=== PATIENT | male | born 1980 | race Caucasian/White ===

== ENCOUNTER 2024-05-29 10:33 | Emergency (ER) | payer BC, SELFPAY ==
[2024-05-29 10:41] VITALS: BP 117/86; PULSE 133; RESP 16; TEMP 38.7; O2SAT 97
--- NOTE | 2024-05-29 10:45 | ED_ITS ---
HPI - URI/Sore Throat General Chief Complaint: Upper Respiratory Infection Stated Complaint: Cough/Fever/Body Aches Time Seen by Provider: 05/29/24 11:10 Source: patient and RN notes reviewed Mode of arrival: ambulatory Limitations: no limitations History of Present Illness HPI Narrative: 44-year-old male presents with concern for cough, fever that started last night. Reports body aches in general malaise. He reports he took ibuprofen. MD elicited complaint: fever and cough Related Data Home Medications ?Medication ?Instructions ?Recorded ?Confirmed ?Last Taken ?Type allopurinol 300 mg tablet mg 05/29/24 Unknown History citalopram 20 mg tablet mg 05/29/24 Unknown History lisdexamfetamine 50 mg capsule mg 05/29/24 Unknown History Allergies Allergy/AdvReac Type Severity Reaction Status Date / Time No Known Allergies Allergy Verified 05/29/24 10:47 Review of Systems Review of Systems: CONSTITUTIONAL: Reports malaise, chills, sweats, fever. EYES: Denies visual changes, redness, or discharge. ENT: Denies rhinorrhea, congestion, sinus pain, otalgia and sore throat. CARDIOVASCULAR: Denies chest pain, palpitations, or edema. RESPIRATORY: Reports cough. Denies dyspnea. GASTROINTESTINAL: Denies abdominal pain, nausea, vomiting, diarrhea SKIN: Denies rash or itching. MUSCULOSKELETAL: Reports myalgia. NEUROLOGIC: Denies headache. All systems reviewed & are unremarkable except as noted in HPI and below PMFSH Comments At time of signature, agree with nursing past medical, surgical, social and fami ly history. There is no relevant family history pertinent to the presenting complaint Exam Narrative: GENERAL: Well-appearing, well-nourished, and in no acute distress. HEAD: Normocephalic EYES: PERRLA, conjunctivae clear ENT: Nares clear. Mucous membranes moist. TM pearly rodriguez with dull light reflex bilaterally; no tragal tenderness. Oropharynx not erythematous without lesions. Tonsils not enlarged and without exudate, no drooling, no hoarseness, no trismus, uvula midline. NECK: Supple. No lymphadenopathy CHEST: Clear to auscultation, breath sounds equal. No wheezing, rhonchi, rales, or stridor. No respiratory distress, speaks in full sentences. Persistent cough noted HEART: Regular rate and rhythm. No murmur heard. SKIN: Warm, dry, no rash. NEURO: Alert and oriented x3. PSYCH: Normal mood and affect Course Course Emergency Course: Patient is aware of diagnosis, understands and agrees to treatment plan. Anticipatory guidance given. Patient agrees to follow-up as directed and is aw are of reasons to seek care at the emergency department. Portions of this record may have been created with voice recognition software Level of Care: Express Care Visit Vital Signs Vital signs: Reviewed. MDM - URI/Sore Throat MDM Narrative Medical decision making narrative: Differential diagnosis considered: Fernandez virus, strep pharyngitis, allergic rhinitis, upper respiratory tract infection, sinusitis, rhinosinusitis, nasopharyngitis. viral pharyngitis, otitis media, otitis externa, pneumonia, bronchitis, viral cough syndrome, viral syndrome, and influenza. Exam findings show no acute concerns or changes; patient is non-toxic appearing and is in no distress. Patient is appropriate for outpatient treatment and follow-up. Lab Data Attestation: I reviewed the patient's lab results. Critical Care Time Critical Care Time Critical Care Time: No Discharge Plan Discharge Clinical Impression: Upper respiratory infection Patient Disposition: Home, Self-Care Condition: Stable Instructions: Upper Respiratory Infection (ED) Additional Instructions: -Take strict precautions to prevent the spread of your virus. Be diligent about covering your cough (even when you are alone) and washing your hands frequently. -You may contagious until you have been symptom and/or fever free for 24 hours without fever reducing medicine -Alternate Ibuprofen and Tylenol for pain and fever relief (per package directions) -Some Cough medicines may make you drowsy, do not take it if you have to make important decisions, drive, or work. -Drink plenty of fluid - drink fluid with electrolytes such as Gatorade or other oral re-hydration solution. Avoid caffeine, which can make dehydration worse. -Get plenty of rest to help your body heal. -Use a cool mist humidifier for chest and nasal congestion. -Eat RAW honey or use cough drops to ease throat discomfort -Do not smoke or expose children to secondhand smoke -Wash your hands frequently. -Please follow-up with your primary care doctor in the next 1-2 days if your symptoms do not improve. -If you have any worsening of symptoms or any other concerns please go to the ED immediately. -Please take medications as prescribed and continue taking your home medications as usual. Patient Language: Haitian Prescriptions: New promethazine-DM 6.25-15 mg/5 mL syrup 5 ml PO Q4-6H PRN (Reason: cough) Qty: 120 0RF No Action citalopram 20 mg tablet allopurinol 300 mg tablet lisdexamfetamine 50 mg capsule Follow-up/Referrals: PHYSICIAN NOT ON STAFF,NONSTAFF [Primary Care Provider] - Stand Alone Forms: Work/School Release IP Time of Disposition: 11:20
[2024-05-29 11:16] LABS: EDCOVIDSCREEN Negative (Negative); EDINFLUASCREEN Negative (Negative); EDINFLUBSCREEN Negative (Negative)
--- OUTSIDE RECORDS SUMMARY | 2024-05-29 11:50 | XMS_ITS | Clinical Summary ---
Author Organization [address] Address [address] [place] [address] Care Team Providers Care Dump Attendant Name Role Phone Octavio Santiago MD Primary Care Provi calderon Allergies No known active allergies Medications tadalafiL (CIALIS) 5 mg tablet Take 1 tablet (5 mg total) by mouth daily as needed for erectile dysfunction 90 tablet 3 02/09/20 22 Active allopurinoL (ZYLOPRIM) 300 mg tabletIndicat ions:Hyperuri cemia Take 1 tablet (300 mg total) by mouth daily 90 tablet 3 01/23/20 24 Active citalopram (CeleXA) 20 mg tabletIndicat ions:Moderate episode of recurrent major depressive disorder (HCC) Take 1 tablet (20 mg total) by mouth daily 90 tablet 3 01/23/20 24 Active albuterol HFA (PROVENTIL HFA,VENTOLIN HFA,PROAIR HFA) 90 mcg/actuation inhaler Inhale 2 puffs every 6 (six) hours as needed for wheezing or shortness of breath 1 each 04/20/19 25 Active lisdexamfetam ine (Vyvanse) 50 mg capsule Take 1 capsule (50 mg total) by mouth every morning 30 capsule 05/16/19 25 Active lisdexamfetam ine (Vyvanse) 50 mg capsule Take 1 capsule (50 mg total) by mouth every morning 30 capsule 04/16/20 24 025 Discontinued(Re order) lisdexamfetam ine (Vyvanse) 50 mg capsule Take 1 capsule (50 mg total) by mouth every morning 30 capsule 05/16/19 25 025 Discontinued Active Problems Problem Noted Date Diagnosed Date H/O cold sores 08/18/2020 Assessment & Plan (08/18/2020 4:16 PM CDT): Order valtrex Hyperuricemia 05/22/2020 Assessment & Plan (02/18/2021 8:01 AM CDT): Chronic with no recent exacerbations Assessment & Plan (11/18/2020 2:07 PM CDT): Chronic Continue allopurinol No recent exacerbations Assessment & Plan (08/18/2020 4:11 PM CDT): Chronic condition stable and well controlled with no exacerbations. Assessment & Plan (05/22/2020 5:19 PM DIRECTOR HEDIS): Chronic condition well controlled no recent gout flare-ups continue allopurinol. Other male erectile dysfunction 02/08/2019 Assessment & Plan (02/08/2019 4:11 PM CDT): New start Viagra Attention deficit hyperactiv ity disorder (ADHD), combined type 02/08/2019 Assessment & Plan (02/18/2021 8:00 AM CDT): Chronic condition Stable Continue vyvanse Assessment & Plan (11/18/2020 2:08 PM CDT): Chronic condition Stable and well controlled Assessment & Plan (08/18/2020 4:10 PM CDT): Chronic condition stable and well controlled on vyvanse 60mg Refill vyvanse Assessment & Plan (05/22/2020 5:18 PM DIRECTOR HEDIS): Chronic uncontrolled Increased Vyvanse 60 mg Assessment & Plan (02/13/2020 5:18 PM CDT): Well controlled on current regimen, no rx changes needed. Continue lifestyle modifications Assessment & Plan (11/07/2019 5:06 PM CDT): Well controlled on current regimen, no rx changes needed. Continue lifestyle modifications Refill medication of vyvanse 50mg Assessment & Plan (05/09/2019 3:56 PM DIRECTOR HEDIS): Increase vyvanse 50mg qd Assessment & Plan (02/08/2019 4:25 PM CDT): Start Vyvanse 40 mg Encounters Date Type Department Care Team Description 04/27/2024 Telephone [facility] [address] [facility] [address] [place] [address] Octavio Santiago MD Med Refill 04/20/2024 8:10 AM DIRECTOR HEDIS E-Visit [facility] [address] [place] [phone] Danni Scott NP Your Medications 04/20/2024 Patient Self-Triage [facility] [address] [place] [address] Mychart, Generic Provider from Last 3 Months Immunizations Name Administration Dates Next Due Influenza, Unspecified 02/08/2023(Deferr ed: Patient Refused),06/16/2022(Deferred: Patient Refused),06/16/2022(Deferred: Patient Refused),02/08/2022(Deferred: Patient Refused),02/18/2021(Deferred: Patient Refused) Tdap 10/09/2016 Surgical History Surgery Date Site/Laterality Comments HERNIA REPAIR NASAL SINUS SURGERY Medical History Medical History Date Comments Gout Kidney stone 2008 ADHD (attention deficit hyperactivity disorder) Irritability and anger Family History Medical History Relation Name Comments No Known Problems Brother No Known Problems Father No Known Problems Mother ADD / ADHD Son 1 ADD / ADHD Son 2 Relation Name Status Comments Brother Alive Father Alive Mother Alive Son 1 Alive Son 2 Alive Social History Tobacco Use Types Packs/Day Years Used Date Smoking Tobacco: Former Cigarettes 1 10 0 04/18/2003 - 04/18/2013 Smokeless Tobacco: Never Tobacco Cessation:Counseling Given: Not Answered Alcohol Use Standard Drinks/Week Comments Yes 0 (1 standard drink = 0.6 oz pur e alcohol) twice a week AUDIT-C Answer Date Recorded Q1: How often do you have a drink containing alcohol? 4 or more times a week 11/18/2020 Q2: How many drinks containi ng alcohol do you have on a typical day when you are drinking? 1 or 2 Q3: How often do you have si x or more drinks on one occasion? Never 11/18/2020 PHQ-2 Answer Date Recorded PHQ-2 Total Score (If total score is 3 or more points, staff should administer the PHQ-9) 0 02/14/2024 Personal Safety Answer Date Recorded Getting School Help Needed Not on file 04/15 Sex and Gender Information Value Date Recorded Sex Assigned at Not on file Legal Sex Male 7:40 PM DIRECTOR HEDIS Gender Identity Not on file Sexual Orientation Not on file Obstetrics History Last Filed Vital Signs Vital Sign Reading Time Taken Comments Blood Pressure 124/74 02/14/2024 4:13 PM CDT Pulse 84 02/14/2024 4:13 PM CDT Temperature 36.9 C (98.5 F) 02/08/2022 9:07 AM CDT Respiratory Rate 18 02/14/2024 4:13 PM CDT Oxygen Saturation 97% 02/14/2024 4:13 PM CDT Inhaled Oxygen Concentration - - Weight 111.1 kg (245 lb) 02/14/2024 4:13 PM CDT Height 177.8 cm (5' 10 ) 02/14/2024 4:13 PM CDT Body Mass Index 35.15 02/14/2024 4:13 PM CDT Plan of Treatment Health Maintenance Due Date Last Done Comments Hepatitis C Screening 1980 Varicella Vaccines (1 of 2 - 13+ 2-dose series) 02/20/1993 Hepatitis B Screening 02/20/1998 Depression Screening 02/13/2025 02/14/2024, 02/08/2023, 02/08/2022, Additional history exists Regular Well Visit/Exam 18-64 02/13/2025 02/14/2024, 02/14/2024, 02/08/2023, Additional history exists DTaP/Tdap/Td Vaccine (2 - Td or Tdap) 10/09/2026 10/09/2016 HPV Vaccines Aged Out No longer eligi ble based on patient's age to complete this topic Influenza Vaccine Discontinued Pneumococcal vaccine <65 Aged Out No longer eligible based on patient's age to complete [place] [address] [facility] Address: [place] [address] [place] [address] Care Teams Dump Attendant Relationship Specialty Start Date End Date Octavio Santiago MD [address] [place] [address] PCP - General Family Medicine 02/08/22
--- OUTSIDE RECORDS SUMMARY | 2024-05-29 11:50 | XMS_ITS | Clinical Summary ---
Author Organization [facility] Address [address] [place] [address] Phone Care Team Providers Care Lens Finisher Name Role Phone Spencer Marion MD Primary Care Provider [phone] Allergies No known active allergies Medications oxyCODONE-aceta minophen (PERCOCET) 5-325 mg tablet Take 1 Tablet by mouth every 4 hours as needed for Pain, Moderate. Max Daily Amount: 6 Tablets 10 Tablet 03/28/2018 Active ondansetron (ZOFRAN) 4 mg Tablet Take 1 Tablet (4 mg) by mouth every 8 hours as needed for Nausea. 10 Tablet None 03/28/2018 Active tamsulosin (FLOMAX) 0.4 mg capsule Take 1 Capsule (0.4 mg) by mouth daily. 3 Capsule 03/28/2018 Active Social History Tobacco Use Types Packs/Day Years Used Date Smoking Tobacco: Never Smokeless Tobacco: Never Alcohol Use Standard Drinks/Week Comments Yes 0 (1 standard drink = 0.6 oz pur e alcohol) Sex and Gender Information Value Date Recorded Sex Assigned at Not on file Legal Sex Male 9:40 PM CDT Gender Identity Not on file Sexual Orientation Not on file Last Filed Vital Signs Vital Sign Reading Time Taken Comments Blood Pressure 139/94 03/28/2018 12:28 PM INSURANCE CLERK Pulse - - Temperature 36.4 C (97.5 F) 03/28/2018 9:07 AM INSURANCE CLERK Respiratory Rate 18 03/28/2018 12:28 PM INSURANCE CLERK Oxygen Saturation 98% 03/28/2018 12:28 PM INSURANCE CLERK Inhaled Oxygen Concentration - - Weight 113.4 kg (250 lb) 03/28/2018 9:07 AM INSURANCE CLERK Height 177.8 cm (5' 10 ) 03/28/2018 9:07 AM INSURANCE CLERK Body Mass Index 35.87 03/28/2018 9:07 AM INSURANCE CLERK Plan of Treatment Health Maintenance Due Date Last Done Comments DTAP/TDAP/TD VACCINES (1 - Tdap) 02/20/1999 HEPATITIS B VACCINES (1 of 3 - 19+ 3-dose series) 02/20/1999 INFLUENZA VACCINE (#1) 2023 HPV VACCINES Aged Out No longer eligi ble based on patient's age to complete this topic Insurance [facility] BLUE ACCESS CHOICE Care Teams Lens Finisher Relationship Specialty Start Date End Date Spencer Marion MD PCP - General Family Practice 03/28/18
--- OUTSIDE RECORDS SUMMARY | 2024-05-29 11:51 | XMS_ITS | Referral Summary ---
Author Organization [address] Address [address] [place] [address] Care Team Providers Care Senior Systems Programmer Name Role Phone Octavio Santiago MD Primary Care Provi calderon Encounters Date Type Department Care Team Description 04/27/2024 Telephone [facility] Family Medicine [address] [facility] [address] [place] [address] Octavio Santiago MD Med Refill 04/20/2024 8:10 AM ORGANIC EXTRACTIONS TECHNICIAN E-Visit [facility] Medical [facility] Virtual Care [address] [place] [address] Danni Scott NP Your Medications 04/20/2024 Patient Self-Triage [facility] [address] [place] [address] Mychart, Generic Provider from Last 3 Months Allergies No known active allergies Medications tadalafiL [...] exacerbations. Assessment & Plan (05/22/2020 5:19 PM ORGANIC EXTRACTIONS TECHNICIAN): Chronic condition well controlled no recent gout [...] vyvanse Assessment & Plan (05/22/2020 5:18 PM ORGANIC EXTRACTIONS TECHNICIAN): Chronic uncontrolled Increased Vyvanse 60 mg Assessment & Plan (02/13/2020 5:18 PM CDT): Well controlled on current regimen, no rx changes needed. Continue lifestyle modifications Assessment & Plan (11/07/2019 5:06 PM CDT): Well controlled on current regimen, no rx changes needed. Continue lifestyle modifications Refill medication of vyvanse 50mg Assessment & Plan (05/09/2019 3:56 PM ORGANIC EXTRACTIONS TECHNICIAN): Increase vyvanse 50mg qd Assessment & Plan (02/08/2019 4:25 PM CDT): Start Vyvanse 40 mg Immunizations Name Administration Dates Next Due Influenza, Unspecified 02/08/2023(Deferr ed: Patient Refused),06/16/2022(Deferred: Patient Refused),06/16/2022(Deferred: Patient Refused),02/08/2022(Deferred: Patient Refused),02/18/2021(Deferred: Patient Refused) Tdap 10/09/2016 Social History Tobacco Use Types Packs/Day Years [...] on file Legal Sex Male 7:40 PM ORGANIC EXTRACTIONS TECHNICIAN Gender Identity Not on file Sexual Orientation [...] 02/14/2024 4:13 PM CDT Plan of Treatment [place] [address] [facility] Care Teams Senior Systems Programmer Relationship Specialty Start Date End Date Octavio Santiago MD [address] [address] PCP - General Family Medicine 02/08/22
--- OUTSIDE RECORDS SUMMARY | 2024-05-29 11:51 | XMS_ITS | Continuity of Care Document ---
Author Organization [facility] Address [address] [facility] [address] [address] Phone Care Team Providers Care Schedule Manager Name Role Phone Bandar Cline MD Unavailable Unavailable Allergies, Adverse Reactions, Alerts Substance Reaction Status Criticality No Known Allergies Active No Inform ation Medications Medication Instructions Dosage Effective Dates (start - stop) Status Comments Vyvanse 10 mg capsule take 1 capsule by oral route every day in the morning 10 MG - Active Procedures Procedure Date Office/outpatient visit,est, mod 2019 Office/outpatient visit,new, mod 2019 [facility] Advance Directives Directive Yes / No Effective Date File Name No Information Encounters Encounter Description Practice Location Reason(s) For Visit Diagnoses Date Provider Providers Copied on Encounter Office/outpat ient visit,est, mod [facility], [address] [address], [place], [place], [id number], [place] tel:[phone] [facility] Professional [facility] right hand (chief complaint) Unsp fx fifth MC bone, right hand, subs for fx w routn heal 0 Marlyn Portillo. [address] [place] [address], [address], [place], [place], [id number] , [place]. tel: [phone] [facility], [address] [place] [address], [place], [place], [id number], [place] tel:[phone] [facility] Fracture of 5th metacarpal bone of right hand, subsequent encounter for fracture w/ routine healing 0 Marlyn Portillo. [address] [place] [address] [address], [place], [place], [id number] , [place]. tel: [phone] Office/outpat ient visit,[facility]a [facility], [address] [facility] [address], [place], [place], [id number], [place] tel:[phone] [facility] Building RIGHT HAND (chief complaint) Fracture of 5th metacarpal bone of right hand, initial encounter for closed fracture 0 Marlyn Portillo. [address] [facility], [address], [place], [place], [id number] , [place]. tel: [phone] Family History Family Member Type Diagnosis Age At Onset Problem (finding) Family history of gout Problem (finding) Family history of renal stone Payers Payer name Insurance type Covered green party ID Authoriza tion(s) [facility] [id number] Social History Type Description Quantity Date Captured Comments Alcohol Use Details Unknown Caffeine Use Details Unknown Tobacco Use Status No Information Smoking Status No Information Sex Male Chief Complaint And Reason For Visit From encounter dated '06/18/2019 13:30'. right hand (chief complaint). Description: f/u xray Reason For Referral Reason For Referral No Information Plan Of Treatment Date Type Action Status Referral Ordered: X-ray exam hand, 3+ views RT ordered Patient Education Body Mass Index: After Your Visit completed History Of Present Illness Encounter Date Complaint History Of Prese nt Illness right hand f/u xray RIGHT HAND PUNCHED A WALL Functional Status Date Functional Assessmen t No Information Instructions Date Instruction Additional Infor mation No Information Assessments Type Assessment Date No Information Patient Care Teams Name Effective Dates (start - stop) Status Members No Information
--- OUTSIDE RECORDS SUMMARY | 2024-05-29 11:51 | XMS_ITS | Encounter Summary ---
Author Organization [facility] Address [address] [place] [address] Care Team Providers Care Gage Designer Name Role Phone Octavio Santiago MD Primary Care Provi calderon Reason for Visit * Reason Onset Date Comments Med Refill 04/27/2024 Encounter Details Date Type Department Care Team (Late st Contact Info) Description 04/27/2024 Telephone [facility] Family Medicine [address] [place] [address] Octavio Santiago MD [address] [place] [address] Med Refill Social History Tobacco Use Types Packs/Day Years Used Date Smoking Tobacco: Former Cigarettes 1 10 0 04/18/2003 - 04/18/2013 Smokeless Tobacco: Never Alcohol Use Standard Drinks/Week [...] on file Legal Sex Male 7:40 PM FOLLOW UP CLERK Gender Identity Not on file Sexual Orientation Not on file documented as of this encounter Miscellaneous Notes * Telephone Encounter - Elen Lomas LPN - 04/27/2024 10:07 AM CST Med and allergy list printed as well as sent to [facility] for patient, patient aware OW UP CLERK * Telephone Encounter - Susi Quezada - 04/27/2024 10:00 AM CST Medication Question/Clarification Medication Name(s): Medication list What is the question or clarification needed? Patient would like a update copy of his medication list. If needed, Pharmacy(s) medication(s) should be sent to: methylPREDNISolone (MEDROL DOSEPACK) 4 mg Dosepack Additional Comments: n/a Does message need to be routed? Yes-Action Needed OW UP CLERK documented in this encounter Plan of Treatment Not on file documented as of this encounter Visit Diagnoses Not on filedocumented in this encounter Care Teams Gage Designer Relationship Specialty Start Date End Date Octavio Santiago MD [address] [address] PCP - General Family Medicine 02/08/22 documented as of this encounter
--- OUTSIDE RECORDS SUMMARY | 2024-05-29 11:55 | XMS_ITS | Continuity of Care Document ---
Author Organization [facility] Address [address] [facility] [address] [address] Phone Care Team Providers Care Oracle Architect Name Role Phone Bandar Cline MD Unavailable [...] on Encounter Office/outpat ient visit,est, mod [facility], [address] [address], [place], [place], [id number], [place] tel:[phone] [facility] Professional [facility] right hand (chief complaint) Unsp fx fifth MC bone, right hand, subs for fx w routn heal 0 Marlyn Portillo. [address] [place] [address], [address], [place], [place], [id number] , [place]. tel: [phone] [facility], [address] [place] [address], [place], [place], [id number], [place] tel:[phone] [facility] [employer] [facility] Fracture of 5th metacarpal bone of right hand, subsequent encounter for fracture w/ routine healing 0 Marlyn Portillo. [address] [place] [address] [address], [place], [place], [id number] , [place]. tel: [phone] Office/outpat ient visit,[facility]aila [facility], [address], [place], [place], [id number], [place] tel:[phone] [facility] Professional Building RIGHT HAND (chief complaint) Fracture of 5th metacarpal bone of right hand, initial encounter for closed fracture 0 Marlyn Portillo. [address] [facility], [address], [place], [place], [id number] , [place]. tel: [phone] Family History Family Member Type Diagnosis Age At Onset Problem (finding) Family history of gout Problem (finding) Family history of renal stone Payers Payer name Insurance type Covered alliance party ID Authoriza tion(s) [facility] [id number] Social History Type Description Quantity Date Captured [...]
== END 2024-05-29 11:26 | disposition home or self-care (01) ==
PROVIDERS: Emergency Provider Nurse Practitioner
DX: J06.9 Acute upper respiratory infection, unspecified (principal); Z20.822 Contact with and (suspected) exposure to COVID-19; M10.9 Gout, unspecified
CPT/HCPCS: 87426; 87804; 99203; G0463